=== PATIENT | male | born 1960 | race Caucasian/White ===

== ENCOUNTER 2019-10-04 23:29 | Emergency (ER) | payer MEDICARE, OTHER, SELFPAY ==
[2019-10-04 23:37] VITALS: BP 147/90; PULSE 77; RESP 20; O2SAT 99
--- NOTE | 2019-10-04 23:41 | ED.NAVMDI ---
HPI - Nausea/Vomiting/Diarrhea General Chief complaint: Nausea/Vomiting/Diarrhea Stated complaint: coughing, vomiting Time Seen by Provider: 10/04/19 23:35 Source: patient Mode of arrival: Ambulatory Limitations: no limitations History of Present Illness HPI Narrative: 59-year-old male former smoker with history of hypertension and a closed head injury presents with a chief complaint of a coughing, vomiting and choking sensation over the course of the day. He denies any rapid onset or memorable onset of events. He denies that he was eating or drinking when it started. He denies any chest pain or shortness of breath. He denies any abdominal pain or change in bowel habits. He does state that he has had a bit of runny nose and sneezing that he attributes to seasonal allergies. He has taken no medications prior to his arrival MD complaint: vomiting Onset (ago): hour(s) Description of Vomiting: watery Description of Diarrhea: none Associated Abdominal Pain: No Related Data Home Medications Medication Instructions Recorded Confirmed PROPRANOLOL HCL (Propranolol HCl 80 mg PO Q DAY #0 10/05/11 ER) indomethacin 25 mg PO Q8HP #0 10/05/11 aspirin 81 mg PO QDAY #0 02/27/16 Previous Rx's Medication Instructions Recorded ondansetron [Zofran ODT] 4 mg SUBLINGUAL Q6HP PRN #20 odt 02/27/16 tramadol 50 mg PO Q6HP PRN #10 tab 02/27/16 levofloxacin [Levaquin] 750 mg PO QDAY 7 Days #0 tab 05/02/16 ondansetron [Zofran ODT] 4 mg SUBLINGUAL Q6HP PRN #20 odt 05/02/16 Allergies Allergy/AdvReac Type Severity Reaction Status Date / Time ibuprofen [IBUPROFEN] Allergy Severe RITER'S Unverified 08/27/17 12:14 SYNDROME Review of Systems Constitutional Constitutional: Denies chills, Denies fatigue, Denies fever(s), Denies frequent falls, Denies lethargy and Denies weakness Eyes Eyes: Denies change in vision, Denies eye discharge, Denies irritation and Denies loss of vision ENT Ears, Nose, Mouth, and Throat: Denies change in voice, Denies dizziness, Denies neck pain, Denies sore throat and Denies throat swelling Cardiovascular Cardiovascular: Denies chest pain, Denies irregular heart rhythm, Denies lightheadedness, Denies palpitations, Denies dyspnea, Denies dyspnea on exertion and Denies orthopnea Respiratory Respiratory: Reports cough, Denies dyspnea, Denies dyspnea on exertion and Denies wheezing Gastrointestinal Gastrointestinal: Denies abdominal pain, Denies change in bowel habits, Denies diarrhea, Denies nausea and Reports vomiting Genitourinary Genitourinary: Denies hematuria, Denies flank pain, Denies urinary incontinence and Denies urinary urgency Musculoskeletal Musculoskeletal: Denies back pain, Denies muscle weakness, Denies neck pain, Denies numbness and Denies tingling Integumentary/Breasts Skin/Breast: Denies pruritus, Denies erythema, Denies rash and Denies wounds Neurologic Neurologic: Denies behavioral changes, Denies confusion, Denies dizziness, Denies frequent falls, Denies loss of vision, Denies numbness, Denies tingling and Denies weakness Psychiatric Psychiatric: Denies anxiety, Denies behavioral changes, Denies confusion, Denies depression, Denies homicidal ideation and Denies suicidal ideation Endocrine Endocrine: Denies fatigue, Denies flushing and Denies palpitations Hematologic/Lymphatic Hematologic/Lymphatic: Denies easy bruising Allergic/Immunologic Allergic/Immunologic: Denies urticaria, Denies throat swelling and Denies wheezing Exam Narrative Exam Narrative: GENERAL: [59] year old patient appears stated age. Well-nourished, well-developed patient, in moderate distress. Anxious, appears to have episodes of choking/coughing as opposed to vomiting HEAD: Atraumatic. Normocephalic. EYES: Pupils equal round and reactive. Extraocular motions intact. No scleral icterus. No injection or drainage. ENT: Nose without bleeding, purulent drainage. Throat without erythema, tonsillar hypertrophy or exudate. Uvula is long and mildly edematous, no sign of infection. Airway patent. NECK: Trachea midline. Non tender CARDIOVASCULAR: Regular rate and rhythm without murmurs, gallops, or rubs. RESPIRATORY: Clear to auscultation. Breath sounds equal bilaterally. No wheezes, rales, or rhonchi. GASTROINTESTINAL: Abdomen soft, non-tender, nondistended. EXTREMITIES: No edema or joint tenderness. BACK: Nontender without deformity or crepitance. No flank tenderness. NEURO: AOx3. SKIN: No rash or erythema of visible areas Initial Vital Signs Initial Vital Signs: Vital Signs Pulse Rate 77 10/04/19 23:37 Respiratory Rate 20 10/04/19 23:37 Blood Pressure 147/90 H 10/04/19 23:37 Pulse Oximetry 99 10/04/19 23:37 Course Course Course Narrative: Patient seemed quite anxious and actually looked as a few were choking as opposed to coughing and vomiting. On exam his uvula was notably long and likely triggering a gag reflex. Orders Ordered: ED Orders 10/04/19 23:43 EKG-12 Lead Routine 10/04/19 23:55 Basic Metabolic Panel Stat Complete Blood Count AUTO DIFF Stat Discontinued Medications Dexamethasone (Decadron) 10 mg IV NOW ONE Stop: 10/04/19 23:43 Last Admin: 10/05/19 00:06 Dose: 10 mg Documented by: ELIGIO Sodium Chloride (Normal Saline 0.9%) 1,000 mls @ 1,000 mls/hr IV BOLUS ONE Stop: 10/05/19 00:41 Last Infusion: 10/05/19 02:48 Dose: 0 mls/hr Documented by: Admin: 10/05/19 00:05 Dose: 1,000 mls/hr Documented by: ELIGIO Lorazepam (Ativan) 1 mg IV NOW ONE Stop: 10/04/19 23:43 Last Admin: 10/05/19 00:06 Dose: 1 mg Documented by: ELIGIO Ondansetron HCl (Zofran) 4 mg IV Q4HR PRN PRN Reason: Nausea And Vomiting Last Admin: 10/05/19 00:05 Dose: 4 mg Documented by: ELIGIO Vital Signs Vital signs: Vital Signs - 8 hr 10/05/19 02:50 Pulse Rate 99 H Respiratory Rate 18 Blood Pressure 117/75 Pulse Oximetry 94 MDM - Nausea/Vomiting/Diarrhea Lab Data Result diagrams: 10/04/19 23:55 10/04/19 23:55 Labs: Lab Results 10/04/19 10/04/19 Range/Units 23:55 23:55 WBC 11.3 H (4.5-11.0) X10^3/uL RBC 5.72 (4.5-5.9) X10^6/uL Hgb 17.2 (13.5-17.5) g/dL Hct 49.5 (41-53) % MCV 86.5 (80-100) fL MCH 30.1 (26-34) PG MCHC 34.8 (30-36) % RDW 14.3 (11.6-14.8) % Plt Count 196 (150-400) X10^3/uL Neut % (Auto) 76.2 H (50-75) % Lymph % (Auto) 13.3 L (25-40) % [place] % (Auto) 9.3 (3-14) % Eos % (Auto) 0.7 L (2-4) % Baso % (Auto) 0.5 (0-2) % Neut # (Auto) 8600 H (9525-8181) /uL Lymph # (Auto) 1500 (3324-7368) /uL [place] # (Auto) 1100 H (0-900) /uL Eos # (Auto) 100 (0-450) /uL Baso # (Auto) 100 (0-100) /uL Sodium 140 (137-145) mmol/L Potassium 4.2 (3.4-5.1) mmol/L Chloride 105 (98-107) mmol/L Carbon Dioxide 22 (22-32) mmol/L BUN 19 (9-20) mg/dL Creatinine 1.15 (0.66-1.25) mg/dL Estimated GFR > 60.0 (>60) mL/min BUN/Creatinine Ratio 16.5 (6-22) Glucose 143 H (70-100) mg/dL Calcium 9.9 (8.4-10.2) mg/dL Discharge Plan Departure Patient Disposition: Home Clinical Impression: Uvulitis Discharge Date/Time: 10/05/19 02:56 Instructions: DI for Uvulitis Activity Restrictions/Additional Instructions: *You have been diagnosed with [choking sensation from inflamed uvula] *What to do: *Take medications as directed including your previously prescribed Ativan as well as [id number] antihistamines *Follow up with your primary care provider in 2-3 days, call for an appointment. Let them know you were seen in the Emergency Department and that we ask that you be seen in follow up *Return to ER if you should have any new, worsening or concerning symptoms Prescriptions: No Action indomethacin 25 MG capsule 25 mg PO Q8HP Qty: 0 RF: 0 PROPRANOLOL HCL (Propranolol HCl ER) 80 mg PO Q DAY Qty: 0 RF: 0 aspirin 81 MG tablet,delayed release (DR/EC) 81 mg PO QDAY Qty: 0 RF: 0 tramadol 50 MG tablet 50 mg PO Q6HP PRNQty: 10 RF: 0 ondansetron [Zofran ODT] 4 MG tablet,disintegrating 4 mg Sublingual Q6HP PRNQty: 20 RF: 0 levofloxacin [Levaquin] 750 MG tablet 750 mg PO QDAY 7 Days Qty: 0 RF: 0 ondansetron [Zofran ODT] 4 MG tablet,disintegrating 4 mg Sublingual Q6HP PRNQty: 20 RF: 0
[2019-10-05 00:02] LABS: Add Manual Diff / Slide Review NO; Basophils Absolute Auto 100 /uL (0-100); Basophils Percent Auto 0.5 % (0-2); Eosinophils Absolute Auto 100 /uL (0-450); Eosinophils Percent Auto 0.7 % (2-4); Hematocrit 49.5 % (41-53); Hemoglobin 17.2 g/dL (13.5-17.5); Lymphocytes Absolute Auto 1500 /uL (1100-4500); Lymphocytes Percent Auto 13.3 % (25-40); Mean Corpuscular HGB Conc 34.8 % (30-36); Mean Corpuscular Hemoglobin 30.1 PG (26-34); Mean Corpuscular Volume 86.5 fL (80-100); Monocytes Absolute Auto 1100 /uL (0-900); Monocytes Percent Auto 9.3 % (3-14); Neutrophils Absolute Auto 8600 /uL (1500-7000); Neutrophils Percent Auto 76.2 % (50-75); Platelet Count 196 X10^3/uL (150-400); Red Blood Cell Count 5.72 X10^6/uL (4.5-5.9); Red Cell Distribution Width 14.3 % (11.6-14.8); White Blood Cell Count 11.3 X10^3/uL (4.5-11.0)
[2019-10-05] MEDS: ONDANSETRON 4 MG/2 ML INJ IV (00:05)
[2019-10-05] MEDS: SODIUM CHLORIDE 0.9% 1,000 ML 1000 ML IV (00:05)
[2019-10-05] MEDS: DEXAMETHASONE 10 MG/ML VIAL IV (00:06)
[2019-10-05] MEDS: LORazepam 2 MG/ML INJ 1 MG IV (00:06)
[2019-10-05 00:13] LABS: BUN Creatinine Ratio 16.5 (6-22); Blood Urea Nitrogen 19 mg/dL (9-20); Calcium 9.9 mg/dL (8.4-10.2); Carbon Dioxide 22 mmol/L (22-32); Chloride 105 mmol/L (98-107); Estimated Glomerular Filt Rate > 60.0 mL/min (>60); Glucose 143 mg/dL (70-100); HEMOLYSIS 18 (0-50); Potassium 4.2 mmol/L (3.4-5.1); Sodium 140 mmol/L (137-145)
[2019-10-05 02:50] VITALS: BP 117/75; PULSE 99; RESP 18; O2SAT 94
== END 2019-10-05 02:56 | disposition home or self-care (01) ==
PROVIDERS: Emergency Provider Emergency Medicine
DX: K12.2 Cellulitis and abscess of mouth (principal); R05 Cough; F41.9 Anxiety disorder, unspecified
CPT/HCPCS: 36415; 80048; 85025; 93005; 96361; 96374; 96375; 99284; J1100; J2060; J2405

== ENCOUNTER 2020-02-29 22:41 | Emergency (ER) | payer MEDICARE, OTHER, SELFPAY ==
[2020-02-29 22:50] VITALS: BP 117/83; PULSE 103; RESP 16; TEMP 36.8; O2SAT 97; BMI 31.8
--- NOTE | 2020-02-29 22:50 | ED.GENADULT ---
HPI - General Adult General Chief complaint: Anxiety Stated complaint: vomiting, panic attack Time Seen by Provider: 02/29/20 22:45 Source: patient Mode of arrival: Ambulatory Limitations: no limitations History of Present Illness HPI narrative: Patient is a 59-year-old male with a history of anxiety and panic attacks. He stated that the mostly come on at night. This evening he states that he had a panic attack come on. He does not know what caused it. He normally can get up and walk around ago for short walk outside and his symptoms improved however this evening he seemed to not be improving. He is also having coughing episodes and vomiting. His family bedside states that the coughing is something that happens quite a bit and this evening he was coughing so much that he was vomiting. He tried his home Ativan without any improvement. He also has Zofran at home which he took without any improvement. Related Data Home Medications Medication Instructions Recorded Confirmed PROPRANOLOL HCL (Propranolol HCl 80 mg PO Q DAY #0 10/05/11 ER) indomethacin 25 mg PO Q8HP #0 10/05/11 aspirin 81 mg PO QDAY #0 02/27/16 Previous Rx's Medication Instructions Recorded ondansetron [Zofran ODT] 4 mg SUBLINGUAL Q6HP PRN #20 odt 02/27/16 tramadol 50 mg PO Q6HP PRN #10 tab 02/27/16 levofloxacin [Levaquin] 750 mg PO QDAY 7 Days #0 tab 05/02/16 ondansetron [Zofran ODT] 4 mg SUBLINGUAL Q6HP PRN #20 odt 05/02/16 Allergies Allergy/AdvReac Type Severity Reaction Status Date / Time ibuprofen [IBUPROFEN] Allergy Severe RITER'S Unverified 08/27/17 12:14 SYNDROME Review of Systems Constitutional Constitutional: Denies fever(s) and Denies headache(s) ENT Ears, Nose, Mouth, and Throat: Denies headache(s) Cardiovascular Cardiovascular: Denies chest pain and Denies dyspnea Respiratory Respiratory: Reports cough and Denies dyspnea Gastrointestinal Gastrointestinal: Reports vomiting Integumentary/Breasts Skin/Breast: Denies lesions and Denies rash Neurologic Neurologic: Denies headache(s) Psychiatric Psychiatric: Reports anxiety Hematologic/Lymphatic Hematologic/Lymphatic: Denies easy bleeding and Denies easy bruising Patient History Medical History Closed head injury (Inactive) Community acquired pneumonia (Inactive) HTN (hypertension) (Inactive) Social History Smoking Status: Current some day smoker Exam Initial Vital Signs Initial Vital Signs: Vital Signs Temperature 98.3 F 02/29/20 22:50 Pulse Rate 103 H 02/29/20 22:50 Respiratory Rate 16 02/29/20 22:50 Blood Pressure 117/83 02/29/20 22:50 Pulse Oximetry 97 02/29/20 22:50 Const General: cooperative and anxious Limitations: mental status not altered HENMT Head: normal to inspection and normocephalic Resp Effort & Inspection: normal respiratory effort Cardio Rate: tachycardic Skin Lesions: no lesions Rashes: no rashes Neuro General: patient alert and patient awake Speech: speech normal Extrem General: capillary refill normal Psych Appearance: grossly normal and well kempt Affect: anxious affect Course Orders Ordered: Discontinued Medications Lorazepam (Ativan) 1 mg IV NOW ONE Stop: 02/29/20 22:51 Last Admin: 02/29/20 23:00 Dose: 1 mg Documented by: RENETTA Ondansetron HCl (Zofran) 4 mg IV NOW ONE Stop: 02/29/20 22:51 Last Admin: 02/29/20 23:01 Dose: 4 mg Documented by: RENETTA Vital Signs Vital signs: Vital Signs - 8 hr 02/29/20 22:50 Temperature 98.3 F Pulse Rate 103 H Respiratory Rate 16 Blood Pressure 117/83 Pulse Oximetry 97 Medical Decision Making [facility] Narrative Medical decision making narrative: Patient very anxious upon arrival and started coughing which then started the vomiting. An IV was placed and he was given Ativan and Zofran. After period of time he reports his symptoms have almost completely resolved. I feel we can hold on further workup in hold on blood test for now. Will discharge home. He was given return precautions. He expressed understanding and agreement. Discharge Plan Departure Patient Disposition: Home Clinical Impression: Acute anxiety Vomiting Qualifiers: Vomiting type: unspecified Vomiting Intractability: non-intractable Nausea presence: unspecified Qualified Code(s): R11.10 - Vomiting, unspecified Instructions: Anxiety Disorders Activity Restrictions/Additional Instructions: Recommend that you continue all of your medications as directed. Contact her primary provider for follow-up. Return to the emergency department for any new or worsening symptoms Prescriptions: No Action indomethacin 25 MG capsule 25 mg PO Q8HP Qty: 0 RF: 0 PROPRANOLOL HCL (Propranolol HCl ER) 80 mg PO Q DAY Qty: 0 RF: 0 aspirin 81 MG tablet,delayed release (DR/EC) 81 mg PO QDAY Qty: 0 RF: 0 tramadol 50 MG tablet 50 mg PO Q6HP PRNQty: 10 RF: 0 ondansetron [Zofran ODT] 4 MG tablet,disintegrating 4 mg Sublingual Q6HP PRNQty: 20 RF: 0 levofloxacin [Levaquin] 750 MG tablet 750 mg PO QDAY 7 Days Qty: 0 RF: 0 ondansetron [Zofran ODT] 4 MG tablet,disintegrating 4 mg Sublingual Q6HP PRNQty: 20 RF: 0
[2020-02-29] MEDS: LORazepam 2 MG/ML INJ 1 MG IV (23:00)
[2020-02-29] MEDS: ONDANSETRON 4 MG/2 ML INJ IV (23:01)
[2020-02-29 23:58] VITALS: BP 111/68; PULSE 88; RESP 16; O2SAT 97
== END 2020-02-29 23:59 | disposition home or self-care (01) ==
PROVIDERS: Emergency Provider Emergency Medicine
DX: F41.9 Anxiety disorder, unspecified (principal); R11.10 Vomiting, unspecified; R05 Cough
CPT/HCPCS: 96374; 96375; 99283; 99284; J2060; J2405

== ENCOUNTER 2020-03-31 21:35 | Emergency (ER) | payer MEDICARE, OTHER, SELFPAY ==
[2020-03-31 21:39] VITALS: BP 144/73; PULSE 93; RESP 18; TEMP 36.7; O2SAT 95; BMI 31.1
[2020-03-31 23:29] VITALS: BP 125/69; PULSE 95; O2SAT 93
[2020-03-31] MEDS: ONDANSETRON 4 MG ODT SL (23:30)
--- NOTE | 2020-04-01 01:42 | ED_ITS ---
HPI - Anxiety General Chief Complaint: Anxiety Stated Complaint: PANIC ATTACK Time Seen by Provider: 03/31/20 23:02 Source: patient Mode of arrival: Ambulatory History of Present Illness HPI narrative: 59-year-old gentleman with a history of panic attacks presents feeling like he is going to have an impending panic attack. He notes that yesterday he was helping his neighbor clear other garden after a large when sore. Was having quite a bit of back shoulder and hip pain after the significant physical work and his neighbor offered him a 2 Vicodin. To the 1st 1 on an empty stomach at 11:30 a.m. in the morning and another at 4:00 p.m.. Who was feeling somewhat nauseated and took his usual Seroquel and trazodone prior to bed. He began feeling worse. Currently the large power outage involving all of [facility] and the darkness triggered significant claustrophobia and anxiety for this gentleman. Was having racing thoughts and develop some dry heaves (which he typically associates with panic attacks). He presents to the emergency room requesting help. Related Data Home Medications Medication Instructions Recorded Confirmed PROPRANOLOL HCL (Propranolol HCl 80 mg PO Q DAY #0 10/05/11 ER) indomethacin 25 mg PO Q8HP #0 10/05/11 aspirin 81 mg PO QDAY #0 02/27/16 Previous Rx's Medication Instructions Recorded ondansetron [Zofran ODT] 4 mg SUBLINGUAL Q6HP PRN #20 odt 02/27/16 tramadol 50 mg PO Q6HP PRN #10 tab 02/27/16 levofloxacin [Levaquin] 750 mg PO QDAY 7 Days #0 tab 05/02/16 ondansetron [Zofran ODT] 4 mg SUBLINGUAL Q6HP PRN #20 odt 05/02/16 Allergies Allergy/AdvReac Type Severity Reaction Status Date / Time ibuprofen [IBUPROFEN] Allergy Severe RITER'S Unverified 08/27/17 12:14 SYNDROME Review of Systems Review of Systems Narrative: Pertinent positive and negative findings as per HPI Remainder of review of systems is otherwise unremarkable for Constitutional: Fevers, chills, weakness ENT: No sore throat, neck pain, ear pain CV: Chest pain, palpitations, dyspnea on exertion Respiratory: Cough, wheeze, GI: Nausea, vomiting, diarrhea, : Dysuria, hematuria, flank pain Neuro: Syncope, dizziness, tingling Psych: Depression, suicidal ideation Patient History Medical History Closed head injury (Inactive) Community acquired pneumonia (Inactive) History of claustrophobia (Acute) HTN (hypertension) (Inactive) Panic attacks (Acute) Social History Smoking Status: Current some day smoker Smoking Status: Current some day smoker Substance Use Type: marijuana Exam Narrative Exam Narrative: General: Alert appropriate in no acute distress. Respiratory: Able to speak in full sentences, no obvious respiratory distress, no wheezing no rhonchi on auscultation Cardiac: Regular rate and rhythm without murmurs Skin: No obvious rashes, warm and dry Neurologic: Grossly intact no obvious asymmetries or abnormalities Psych: Calm, focused, appropriate insight and affect, cooperative Initial Vital Signs Initial Vital Signs: Vital Signs Temperature 98.1 F 03/31/20 21:39 Pulse Rate 93 H 03/31/20 21:39 Respiratory Rate 18 03/31/20 21:39 Blood Pressure 144/73 H 03/31/20 21:39 Pulse Oximetry 95 03/31/20 21:39 Course Orders Ordered: Discontinued Medications Ondansetron HCl (Zofran Odt) 4 mg SL NOW ONE Stop: 03/31/20 23:03 Last Admin: 03/31/20 23:30 Dose: 4 mg Documented by: HARJEET Vital Signs Vital signs: Vital Signs - 8 hr 03/31/20 23:29 04/01/20 01:58 Pulse Rate 95 H 89 Respiratory Rate 16 Blood Pressure 125/69 120/65 Pulse Oximetry 93 93 MDM - Anxiety MDM Narrative Medical decision making narrative: 59-year-old gentleman with an adverse reaction likely to his Vicodin causing increasing nausea that in conjunction with feeling of claustrophobia the setting of power outage and then Seroquel and trazodone adding to his sense of unease has created a panic attack. On arrival in the emergency room his given some Zofran to help the nausea and allowed to rest quietly in room 3. Significantly improved after approximately an hour and ready for home discharge. No evidence of acute medical issue, pneumothorax, coronary syndrome, COVID or other infectious disease. Patient is safe for home discharge Discharge Plan Departure Patient Disposition: Home Clinical Impression: Acute anxiety Adverse drug reaction Qualifiers: Encounter type: initial encounter Qualified Code(s): T50.905A - Adverse effect of unspecified drugs, medicaments and biological substances, initial encounter Discharge Date/Time: 04/01/20 01:59 Instructions: DI for Anxiety -- Adult Activity Restrictions/Additional Instructions: Thank you for coming in this evening I think that your right that the Vicodin on an empty stomach, a claustrophobic feeling with the power outage and then the Seroquel and trazodone exacerbating all of your concerns with a perfect storm in creating this acute anxiety. I am very pleased that the Zofran that we gave you in the emergency department helped your symptoms significantly. It is safe for you to go home at this point. I would recommend avoiding Vicodin as it seems to been the 1st and likely triggering point to tonight's events. If you have any new or recurring symptoms please feel free to return to the emergency department I hope you feel better Prescriptions: No Action indomethacin 25 MG capsule 25 mg PO Q8HP Qty: 0 RF: 0 PROPRANOLOL HCL (Propranolol HCl ER) 80 mg PO Q DAY Qty: 0 RF: 0 aspirin 81 MG tablet,delayed release (DR/EC) 81 mg PO QDAY Qty: 0 RF: 0 tramadol 50 MG tablet 50 mg PO Q6HP PRNQty: 10 RF: 0 ondansetron [Zofran ODT] 4 MG tablet,disintegrating 4 mg Sublingual Q6HP PRNQty: 20 RF: 0 levofloxacin [Levaquin] 750 MG tablet 750 mg PO QDAY 7 Days Qty: 0 RF: 0 ondansetron [Zofran ODT] 4 MG tablet,disintegrating 4 mg Sublingual Q6HP PRNQty: 20 RF: 0
[2020-04-01 01:58] VITALS: BP 120/65; PULSE 89; RESP 16; O2SAT 93
== END 2020-04-01 01:59 | disposition home or self-care (01) ==
PROVIDERS: Emergency Provider Emergency Medicine
DX: F41.9 Anxiety disorder, unspecified (principal); T50.905A Adverse effect of unspecified drugs, medicaments and biological substances, initial encounter; M54.9 Dorsalgia, unspecified
CPT/HCPCS: 99283

== ENCOUNTER 2020-06-22 20:40 | Emergency (ER) | payer MEDICARE, OTHER, SELFPAY ==
[2020-06-22 20:41] VITALS: BP 133/84; PULSE 103; RESP 17; TEMP 36.6; O2SAT 96; BMI 33.0
[2020-06-22 20:45] VITALS: PULSE 117; O2SAT 96
[2020-06-22 20:46] VITALS: PULSE 117; O2SAT 94
[2020-06-22 20:48] VITALS: BP 133/84
[2020-06-22] MEDS: ONDANSETRON 4 MG ODT SL (20:53)
--- NOTE | 2020-06-22 21:38 | DI.RAD.S_ITS ---
PROCEDURE: XR ACUTE ABDOMEN SERIES INDICATIONS: persistent vomiting TECHNIQUE: One view chest and two views of the abdomen were acquired. COMPARISON: [facility], , CHEST 2 VIEW, 05/01/2016, 22:46. FINDINGS: Surgical changes and devices: None. Chest: Lungs are clear. Heart size is normal. No pleural effusions. No pneumoperitoneum. Abdomen: Bowel gas pattern is nonspecific No suspicious calcifications. Visualized solid organ contours appear normal. Bones: No suspicious bony lesions. IMPRESSION: Nonspecific bowel gas pattern without definite evidence of obstruction. If patient's symptoms persist or worsen, CT scan of the abdomen/pelvis should be considered for further evaluation. Dictated by: Sulma Sheriff MD, PhD on 06/23/2020 at 9:00 Approved by: Sulma Sheriff MD, PhD on 06/23/2020 at 9:04
[2020-06-22 21:46] LABS: Add Manual Diff / Slide Review NO; Basophils Absolute Auto 100 /uL (0-100); Basophils Percent Auto 0.4 % (0-2); Eosinophils Absolute Auto 100 /uL (0-450); Eosinophils Percent Auto 0.7 % (2-4); Hematocrit 51.5 % (41-53); Hemoglobin 17.1 g/dL (13.5-17.5); Lymphocytes Absolute Auto 2100 /uL (1100-4500); Lymphocytes Percent Auto 12.7 % (25-40); Mean Corpuscular HGB Conc 33.2 % (30-36); Mean Corpuscular Hemoglobin 28.9 PG (26-34); Monocytes Absolute Auto 1400 /uL (0-900); Monocytes Percent Auto 8.5 % (3-14); Neutrophils Absolute Auto 12900 /uL (1500-7000); Neutrophils Percent Auto 77.7 % (50-75); Platelet Count 260 X10^3/uL (150-400); Red Blood Cell Count 5.92 X10^6/uL (4.5-5.9); Red Cell Distribution Width 14.1 % (11.6-14.8); White Blood Cell Count 16.6 X10^3/uL (4.5-11.0)
[2020-06-22] MEDS: LACTATED RINGERS 1,000 ML 1000 ML IV (21:47)
[2020-06-22] MEDS: LORazepam 2 MG/ML INJ 1 MG IV (21:47)
[2020-06-22 21:49] LABS: BUN Creatinine Ratio 12.8 (6-22); Blood Urea Nitrogen 16 mg/dL (9-20); Calcium 9.7 mg/dL (8.4-10.2); Carbon Dioxide 20 mmol/L (22-32); Chloride 104 mmol/L (98-107); Estimated Glomerular Filt Rate 59.3 mL/min (>60); Glucose 137 mg/dL (70-100); HEMOLYSIS < 15 (0-50); Potassium 4.3 mmol/L (3.4-5.1); Sodium 138 mmol/L (137-145)
[2020-06-22] MEDS: ONDANSETRON 4 MG ODT PREPACK 1 BOTTLE MISC (22:21)
--- NOTE | 2020-06-22 22:38 | ED.NAVMDI ---
HPI - Nausea/Vomiting/Diarrhea General Chief complaint: Nausea/Vomiting/Diarrhea Stated complaint: vomiting Time Seen by Provider: 06/22/20 20:42 Source: patient Mode of arrival: Ambulatory Limitations: no limitations History of Present Illness HPI Narrative: 59-year-old male daily smoker with history of vomiting and panic attacks presents with vomiting that started tonight. He denies fever or chills. He denies bad food. He denies abdominal pain. He is not dizzy, weak, or lightheaded. He has had multiple episodes and is now dry heaving only. He thinks his trigger his anxiety caused by some changes in his access to his therapist and recently found out his longtime provider will not be renewed. MD complaint: nausea and vomiting Onset (ago): minute(s) Description of Vomiting: food contents Description of Diarrhea: none Associated Abdominal Pain: No Severity: mild Exacerbating factors: none Associated symptoms: denies other symptoms Related Data Home Medications Medication Instructions Recorded Confirmed PROPRANOLOL HCL (Propranolol HCl 80 mg PO Q DAY #0 10/05/11 ER) indomethacin 25 mg PO Q8HP #0 10/05/11 aspirin 81 mg PO QDAY #0 02/27/16 Previous Rx's Medication Instructions Recorded ondansetron [Zofran ODT] 4 mg SUBLINGUAL Q6HP PRN #20 odt 02/27/16 tramadol 50 mg PO Q6HP PRN #10 tab 02/27/16 levofloxacin [Levaquin] 750 mg PO QDAY 7 Days #0 tab 05/02/16 ondansetron [Zofran ODT] 4 mg SUBLINGUAL Q6HP PRN #20 odt 05/02/16 Allergies Allergy/AdvReac Type Severity Reaction Status Date / Time ibuprofen [IBUPROFEN] Allergy Severe RITER'S Verified 06/22/20 20:50 SYNDROME Review of Systems Constitutional Constitutional: Denies chills, Denies fatigue, Denies fever(s), Denies frequent falls, Denies lethargy and Denies weakness Eyes Eyes: Denies change in vision, Denies eye discharge, Denies irritation and Denies loss of vision ENT Ears, Nose, Mouth, and Throat: Denies change in voice, Denies dizziness, Denies neck pain, Denies sore throat and Denies throat swelling Cardiovascular Cardiovascular: Denies chest pain, Denies irregular heart rhythm, Denies lightheadedness, Denies palpitations, Denies dyspnea, Denies dyspnea on exertion and Denies orthopnea Respiratory Respiratory: Denies cough, Denies dyspnea, Denies dyspnea on exertion and Denies wheezing Gastrointestinal Gastrointestinal: Denies abdominal pain, Denies change in bowel habits, Denies diarrhea, Reports nausea and Reports vomiting Musculoskeletal Musculoskeletal: Denies neck pain and Denies numbness Integumentary/Breasts Skin/Breast: Denies pruritus, Denies erythema, Denies rash and Denies wounds Neurologic Neurologic: Denies behavioral changes, Denies confusion, Denies dizziness, Denies frequent falls, Denies loss of vision, Denies numbness and Denies weakness Psychiatric Psychiatric: Denies anxiety, Denies behavioral changes, Denies confusion, Denies depression, Denies homicidal ideation and Denies suicidal ideation Endocrine Endocrine: Denies fatigue, Denies flushing and Denies palpitations Hematologic/Lymphatic Hematologic/Lymphatic: Denies easy bruising Allergic/Immunologic Allergic/Immunologic: Denies urticaria, Denies throat swelling and Denies wheezing Patient History Medical History Closed head injury Community acquired pneumonia History of claustrophobia HTN (hypertension) Panic attacks Social History Smoking Status: Current some day smoker Smoking Status: Current some day smoker alcohol intake frequency: holidays/special occasions only Substance Use Type: marijuana Exam Narrative Exam Narrative: GENERAL: [59] year old patient appears stated age. Well-nourished, well-developed patient, in moderate distress, holding an emesis bag, vomiting forcefully with repeat dry heaves HEAD: Atraumatic. Normocephalic. EYES: Pupils equal round and reactive. Extraocular motions intact. No scleral icterus. No injection or drainage. ENT: Nose without bleeding, purulent drainage. Throat without erythema, tonsillar hypertrophy or exudate. Airway patent. NECK: Trachea midline. Non tender CARDIOVASCULAR: Regular rate and rhythm without murmurs, gallops, or rubs. RESPIRATORY: Clear to auscultation. Breath sounds equal bilaterally. No wheezes, rales, or rhonchi. GASTROINTESTINAL: Abdomen soft, non-tender, nondistended. EXTREMITIES: No edema or joint tenderness. BACK: Nontender without deformity or crepitance. No flank tenderness. NEURO: AOx3. SKIN: No rash or erythema of visible areas Initial Vital Signs Initial Vital Signs: Vital Signs Temperature 97.8 F 06/22/20 20:41 Pulse Rate 103 H 06/22/20 20:41 Respiratory Rate 17 06/22/20 20:41 Blood Pressure 133/84 06/22/20 20:41 Pulse Oximetry 96 06/22/20 20:41 Course Orders Ordered: ED Orders 06/22/20 20:54 Basic Metabolic Panel Stat Complete Blood Count AUTO DIFF Stat 06/22/20 21:38 XR acute abdomen series Stat Discontinued Medications Lactated Ringer's (Lactated Ringers) 1,000 mls @ 1,000 mls/hr IV BOLUS ONE Stop: 06/22/20 22:36 Last Infusion: 06/22/20 22:59 Dose: 0 mls/hr Documented by: Admin: 06/22/20 21:47 Dose: 1,000 mls/hr Documented by: FRANK Lorazepam (Lorazepam 2 Mg/Ml Inj) 1 mg IV NOW ONE Stop: 06/22/20 21:38 Last Admin: 06/22/20 21:47 Dose: 1 mg Documented by: FRANK Ondansetron HCl (Ondansetron 4 Mg Odt) 4 mg SL NOW ONE Stop: 06/22/20 20:49 Last Admin: 06/22/20 20:53 Dose: 4 mg Documented by: RENETTA Ondansetron HCl (Ondansetron 4 Mg Odt Prepack) 1 bottle MISC SEEINSTR ONE Stop: 06/22/20 22:16 Last Admin: 06/22/20 22:21 Dose: 1 bottle Documented by: FRANK Pantoprazole Sodium (Pantoprazole 40 Mg Vial) 20 mg IV NOW ONE Stop: 06/22/20 22:32 Last Admin: 06/22/20 22:59 Dose: 20 mg Documented by: FRANK Reevaluation(s) Reevaluation #1: Minimal change after ondansetron, this often times will completely fix his symptoms. Reevaluation #2: Complete resolution after Ativan. Vital Signs Vital signs: Vital Signs - 8 hr 06/22/20 20:41 06/22/20 20:45 06/22/20 20:46 Temperature 97.8 F Pulse Rate 103 H 117 H 117 H Respiratory Rate 17 Blood Pressure 133/84 Pulse Oximetry 96 96 94 06/22/20 20:48 06/22/20 23:02 Temperature Pulse Rate Respiratory Rate Blood Pressure 133/84 138/88 Pulse Oximetry MDM - Nausea/Vomiting/Diarrhea Lab Data Result diagrams: 06/22/20 20:54 06/22/20 20:54 Labs: Lab Results 06/22/20 06/22/20 Range/Units 20:54 20:54 WBC 16.6 H (4.5-11.0) X10^3/uL RBC 5.92 H (4.5-5.9) X10^6/uL Hgb 17.1 (13.5-17.5) g/dL Hct 51.5 (41-53) % MCV 87.0 (80-100) fL MCH 28.9 (26-34) PG MCHC 33.2 (30-36) % RDW 14.1 (11.6-14.8) % Plt Count 260 (150-400) X10^3/uL Neut % (Auto) 77.7 H (50-75) % Lymph % (Auto) 12.7 L (25-40) % [place] % (Auto) 8.5 (3-14) % Eos % (Auto) 0.7 L (2-4) % Baso % (Auto) 0.4 (0-2) % Neut # (Auto) 72690 H (0475-3223) /uL Lymph # (Auto) 2100 (7365-8932) /uL [place] # (Auto) 1400 H (0-900) /uL Eos # (Auto) 100 (0-450) /uL Baso # (Auto) 100 (0-100) /uL Sodium 138 (137-145) mmol/L Potassium 4.3 (3.4-5.1) mmol/L Chloride 104 (98-107) mmol/L Carbon Dioxide 20 L (22-32) mmol/L BUN 16 (9-20) mg/dL Creatinine 1.25 (0.66-1.25) mg/dL Estimated GFR 59.3 L (>60) mL/min BUN/Creatinine Ratio 12.8 (6-22) Glucose 137 H (70-100) mg/dL Calcium 9.7 (8.4-10.2) mg/dL Discharge Plan Departure Patient Disposition: Home Clinical Impression: Acute vomiting Instructions: DI for Vomiting -- Adult Activity Restrictions/Additional Instructions: *You have been diagnosed with [vomiting with mild dehydration] *What to do: *Take medications as directed *Follow up with your primary care provider in 2-3 days, call for an appointment. Let them know you were seen in the Emergency Department and that we ask that you be seen in follow up *Return to ER if you should have any new, worsening or concerning symptoms 1. Drink plenty of fluids with frequent small sips. 2. For the next 24 hours a clear liquid diet is advised. After that please employ a B.R.A.T. diet which would include bananas, rice, apples, toast and other mild food items Prescriptions: No Action indomethacin 25 MG capsule 25 mg PO Q8HP Qty: 0 RF: 0 PROPRANOLOL HCL (Propranolol HCl ER) 80 mg PO Q DAY Qty: 0 RF: 0 aspirin 81 MG tablet,delayed release (DR/EC) 81 mg PO QDAY Qty: 0 RF: 0 tramadol 50 MG tablet 50 mg PO Q6HP PRNQty: 10 RF: 0 ondansetron [Zofran ODT] 4 MG tablet,disintegrating 4 mg Sublingual Q6HP PRNQty: 20 RF: 0 levofloxacin [Levaquin] 750 MG tablet 750 mg PO QDAY 7 Days Qty: 0 RF: 0 ondansetron [Zofran ODT] 4 MG tablet,disintegrating 4 mg Sublingual Q6HP PRNQty: 20 RF: 0
[2020-06-22] MEDS: PANTOPRAZOLE 40 MG VIAL 20 MG IV (22:59)
[2020-06-22 23:02] VITALS: BP 138/88
== END 2020-06-22 23:03 | disposition home or self-care (01) ==
PROVIDERS: Emergency Provider Emergency Medicine
DX: R11.2 Nausea with vomiting, unspecified (principal); I10 Essential (primary) hypertension
CPT/HCPCS: 36415; 74022; 80048; 85025; 96361; 96374; 96375; 99284; C9113; J2060